=== PATIENT | female | born 1980 | race Caucasian/White ===

== ENCOUNTER 2025-04-25 08:14 | Emergency (ER) | payer MEDICAID, SELFPAY ==
[2025-04-25 08:34] VITALS: BP 156/102; PULSE 79; RESP 18; TEMP 37.1; O2SAT 99
--- NOTE | 2025-04-25 08:44 | ED_ITS ---
HPI - Extremity Injury (Upper) General Chief Complaint: Extremity Injury, Upper Stated Complaint: left shoulder pain Time Seen by Provider: 04/25/25 08:44 Source: patient Mode of arrival: ambulatory Limitations: no limitations History of Present Illness HPI narrative: 44-year-old female presents with complaint left shoulder pain. Has had pain to left shoulder for the past 2-3 months. Patient saw her primary care physician for pain and was referred to physical therapy. Patient states she did want physical therapy session and then did the exercises that she learned at physical therapy at home. Patient states that it was over in [place] and she was not able to drive that far for therapy due to her work schedule. Has been taking ibuprofen to treat her pain. Patient states about a week ago her dog pulled on left arm when on a walk. Since then has had decreased range of motion to left shoulder. Patient states that pain seems similar to when she had bursitis to her right hip. Patient requesting steroids. Also needs note, called in to work today. All systems reviewed and negative except as noted above. Related Data Allergies Allergy/AdvReac Type Severity Reaction Status Date / Time No Known Allergies Allergy Verified 04/25/25 08:40 [facility] Comments At time of signature, agree with nursing past medical, surgical, social and family history. There is no relevant family history pertinent to the presenting complaint. Exam Narrative: GENERAL: This is a well-nourished, well-developed patient, in no apparent distress. HEAD: normocephalic, atraumatic. EYES: PERRL. Sclera clear/white. Vision is grossly intact. EARS: External ears normal NOSE: External nose normal NECK: Neck supple, non-tender without lymphadenopathy, masses or thyromegaly. CARDIOVASCULAR: Regular rate and rhythm without murmurs, gallops, or rubs. RESPIRATORY: Clear to auscultation. Breath sounds equal bilaterally. No wheezes, rales, or rhonchi. SKIN: warm, Dry, intact with no suspicious lesions or rash, good texture and turgor. NEURO: awake, alert, and oriented to person, place and time. There were no obvious focal neurologic abnormalities. EXTREMITIES: Anterior pain to left shoulder. Decreased range of motion able to abduct and flex to 90 degree. Normal strength. Distal neurovascularly intact. Course Course Level of Care: Express Care Visit Vital Signs Vital signs: Reviewed MDM - Extremity Injury (Upper) MDM Narrative Medical decision making narrative: we do not have a tack today for x-rays. I explained this to patient and offered transfer to a no other facility for an x-ray. She did not feel was necessary. Will follow up with her primary care physician. Patient was prescribed prednisone, Robaxin for left shoulder pain. She is well-appearing, nontoxic. Differential Diagnosis Differential diagnosis: Likely other (shoulder pain, arthritis, strain) Discharge Plan Discharge Clinical Impression: Left shoulder strain Patient Disposition: Home Condition: Stable Instructions: Shoulder Pain (ED) Additional Instructions: take medications as prescribed. Methocarbamol as a muscle relaxant may cause drowsiness. Do not drive while taking this medication. Continue to take ibuprofen every 6-8 hours as needed for pain. Apply heat for pain. Follow-up with your primary care physician for further evaluation of your pain. Patient Language: Syriac Prescriptions: New prednisone 20 mg tablet 40 mg PO DAILY 5 Days Qty: 10 0RF methocarbamol 750 mg tablet 750 mg PO Q8H PRN (Reason: muscle pain/spasm) Qty: 30 0RF Follow-up/Referrals: UNKNOWN,DOCTOR [Primary Care Provider] Stand Alone Forms: Work/School Release IP Time of Disposition: 08:45
== END 2025-04-25 08:49 | disposition home or self-care (01) ==
PROVIDERS: Emergency Provider Nurse Practitioner Family
DX: S46.912A Strain of unspecified muscle, fascia and tendon at shoulder and upper arm level, left arm, initial encounter (principal); X58.XXXA Exposure to other specified factors, initial encounter; Y93.K1 Activity, walking an animal
CPT/HCPCS: 99203; G0463

== ENCOUNTER 2025-05-22 19:34 | Emergency (ER) | payer MEDICAID, SELFPAY ==
--- OUTSIDE RECORDS SUMMARY | 2023-09-20 04:12 | XMS_ITS | Continuity of Care Document ---
Author Organization [facility] Address [address] [place] [address] Phone Care Team Providers Care Elevating Grader Operator Name Role Phone Hand Bo MARCH Unavailable Unavailable Allergies, Adverse Reactions, Alerts Substance Reaction Status Criticality No Known Allergies Active No Inform ation Medications Medication Instructions Dosage Effective Dates (start - stop) Status Comments hydrochlorothiazide 25 mg tablet take 1 tablet by oral route every day 25 MG - Active Women's One Daily 18 mg iron-400 mcg-500 mg Ca tablet - Active CRANBERRY (unknown strength) Not Available - Active ashwagandha root extract 300 mg capsule - Active Procedures Procedure Date GENERAL HEALTH PANEL HEMOGLOBIN A1C HGA1C, GLYCO LDL-CHOLESTEROL, DIRECT ROUTINE VENIPUNCTURE Pt inelig neg scrn depres Brief Emotional/Behavioral A ssessment, With Scoring/Doct, Per Stndrd Instrument Clin depression screen doc Brief Emotional/Behavioral A ssessment, With Scoring/Doct, Per Stndrd Instrument PREVENTATIVE-NEW: 40-64 BODY MASS INDEX DOCD SYST BP LT 130 MM HG DIAST BP >= 90 MM HG Advance Directives Directive Yes / No Effective Date File Name Life Support Not Answered N/A N/A Intubation Not Answered N/A N/A Antibiotics Not Answered N/A N/A IV Fluid Support Not Answered N/A N/A Tube Feed Not Answered N/A N/A Other Directive N/A N/A WARNING:The information contained in this section is historical and is provided for information only and does not constitute a legal document or any assurance that the information is still accurate. Please verify the information with the bloom of the legal document before using it for clinical purposes. Encounters Encounter Description Practice Location Reason(s) For Visit Diagnoses Date Provider Providers Copied on Encounter [facility], [address], [place], [place], [address] , tel: [phone] [facility] No Information [address], [address], [place], [place], [address] , . tel: [phone] [facility], [address], [place], [place], [address] , tel: [phone] [facility] No Information [address], [address], [place], [place], [address] , . tel: [phone] [facility], [address], [place], [place], [address] , tel: [phone] [facility] Encounter for general adult medical examination without abnormal findingsEssential (primary) hypertensionOther abnormal glucose May- 1 [address], [address], [place], [place], [address] , . tel: [phone] Referring Provider: Bo Adams, [address], [place], [address] . tel:[phone] PREVENTATIVE -NEW: 40-64 [facility], [address], [place], [place], [address] , tel: [phone] [facility] Estab Care (chief complaint) Body mass index [BMI] 39.0-39.9, adultRoutine general medical examination at a health care facilityEssential (primary) hypertensionAbnorma l glucose Oct-2 1 [address], [address], [place], [place], [address] , . tel:[phone] Referring Provider: Bo Adams, [address], [place], [address] . tel:[phone] Family History Family Member Type Diagnosis Age At Onset No Information Immunizations Vaccine Date Status Comments Pfizer-BioNTech COVID19 Vacc ine, 0.3mL per dose, 2 doses, administered 21 days apart administered Source: Other Regist ry Pfizer-BioNTech COVID19 Vacc ine, 0.3mL per dose, 2 doses, administered 21 days apart administered Source: Other Regist ry Payers Payer name Insurance type Covered constitution party ID Cierra watts(s) [facility] ACCESS CHOICE BL [id number] Social History Type Description Quantity Date Captured Comments Alcohol Use Details Unknown Caffeine Use Details Unknown Tobacco Use Status No Information Smoking Status No Information Sex Female Chief Complaint And Reason For Visit No Information Reason For Referral Reason For Referral No Information Plan Of Treatment Date Type Action Status Goal Dietary management education , guidance, and counseling completed History Of Present Illness Encounter Date Complaint History Of Prese nt Illness Estab Care The patient is h ere for a preventative visit. Chronic problems are addressed elsewhere. Immunizations and screening tests are reviewed at this visit.PMH: HTN, Anemia, anxiety, depression, migrainesPSH: Gallbladder, herniaSoc: single, 2 children, no smoking, drink occFH: Brain / Breast in Grandparent, Asthma, Depression, Diabetes, HTN, Obesity, SeizureMeds: HCTZAllgs: nkdathe patient just moved here in october of 2019 Functional Status Date Functional Assessmen t No Information Instructions Date Instruction Additional Infor mation Dietary management e ducation, guidance, and counseling Related to Body mass index (BMI) 39.0-39.9, adult Assessments Type Assessment Date No Information Patient Care Teams Name Effective Dates (start - stop) Status Members No Information
--- NOTE | ~2025-05-22 | XR_ITS ---
EXAMINATION: XR chest 2V DATE: 05/22/2025 20:02 INDICATION: Shortness of breath and chest pain TECHNIQUE: PA and lateral views of the chest were obtained. COMPARISON: None FINDINGS: Mild eventration along the anterior right hemidiaphragm. The lungs are clear with no focal airspace opacities, pulmonary edema, pleural effusion or pneumothorax. The cardiomediastinal silhouette is normal. Cholecystectomy clips in the right upper quadrant. Visualized bones and soft tissues are unremarkable. IMPRESSION: 1. No acute cardiopulmonary disease. Reviewed, dictated and finalized at location A.
--- NOTE | 2025-05-22 19:36 | ECG_ITS ---
Test Date: 2025-05-22 19:40:25 Measurements Intervals [place] Rate: 100 P: 25 KS: 161 QRS: -16 QRSD: 94 T: 72 QT: 232 QTc: 300 Interpretive Statements SINUS TACHYCARDIA INCOMPLETE RIGHT BUNDLE BRANCH BLOCK DELAYED PRECORDIAL R/S TRANSITION VOLTAGE CRITERIA FOR LVH NONSPECIFIC T-WAVE ABNORMALITY- ANTEROLAT/INF LEADS BASELINE ARTIFACT- I, II, III, AVR, AVL, AVF, V1-V6 BORDERLINE ECG No previous ECG available for comparison Electronically Signed On 05-23-2025 06:15:49 CDT by Javier Muñoz D.O.
--- OUTSIDE RECORDS SUMMARY | 2025-05-22 19:36 | XMS_ITS | Clinical Summary ---
Author Organization [facility] Address [address] [place] [address] Care Team Providers Care Carpenters Supervisor Name Role Phone Alicia Alonzo MD Primary Care Provider Source Comments [facility],non-owned Affiliates and Associated Physician Practices is amultiple site organization consisting of ambulatory clinics and hospital sitesin [place], [place], [place] and [place]. This disclosure is being madepursuant to the Care Everywhere program and may not contain all information available regarding this patient. Last updated 18.[facility] Allergies No known active allergies Medications * Be aware that medications may not be up to date on this document. Alwaysverify current medications with the patient. losartan (Cozaar) 25 MG tablet Take 1 (one) tablet by mouth once daily 90 tablet 1 02/03/20 24 Active hydroCHLOROthia zide (Hydrodiuril) 25 MG tablet Take 1 (one) tablet by mouth once daily 90 tablet 1 02/03/20 24 Active tirzepatide (Zepbound) 2.5 MG/0.5ML injectionIndica tions:Prediabet es,Class 3 severe obesity due to excess calories with serious comorbidity and body mass index (BMI) of 40.0 to 44.9 in adult (HCC) Inject 2.5 (two and one-half) mg subcutaneously every 7 days 2 mL 2 11/24/19 25 Active meloxicam (Mobic) 15 MG tablet Take 1 (one) tablet by mouth once daily 30 tablet 2 11/24/19 25 Active Active Problems Problem Noted Date Diagnosed Date Primary hypertension 01/03/2024 Class 3 severe obesity due t o excess calories with serious comorbidity and body mass index (BMI) of 40.0 to 44.9 in adult 01/03/2024 History of gestational diabetes 01/03/2024 Encounters Date Type Department Care Team Description 02/27/2025 Patient Outreach [facility] - Care Coordination [address] [place] [address] Kathy Harper Outreach Preventive Care from Last 3 Months Family History Medical History Relation Name Comments CAD (Coronary Artery Disease) Father Brain Tumor Maternal Grandfather Cirrhosis Maternal Grandfather Heart Failure Maternal Grandmother CAD (Coronary Artery Disease) Mother Cancer - Lung Mother Diabetes - Type 2 Mother Hypertension Mother Cancer - Breast Paternal Grandmother Diabetes - Type 2 Paternal Grandmother Relation Name Status Comments Father Maternal Grandfather Maternal Grandmother Mother Alive Paternal Grandmother Social History Tobacco Use Types Packs/Day Years Used Date Smoking Tobacco: Never Smokeless Tobacco: Never Tobacco Cessation:Counseling Given: No Alcohol Use Standard Drinks/Week Comments Yes 0 (1 standard drink = 0.6 oz pur e alcohol) once a month PHQ-2 Answer Date Recorded Patient Health Questionnaire-2 Score 0 11/23/2024 Comments No Sex and Gender Information Value Date Recorded Sex Assigned at Not on file Legal Sex Female 9:28 PM CDT Gender Identity Not on file Sexual Orientation Not on file Last Filed Vital Signs Vital Sign Reading Time Taken Comments Blood Pressure 128/83 11/23/2024 7:33 AM CDT Pulse 75 11/23/2024 7:33 AM CDT Temperature 36.3 C (97.4 F) 11/23/2024 7:33 AM CDT Respiratory Rate 18 08/03/2020 6:16 PM GYPSUM BLOCK SETTER Oxygen Saturation 98% 11/23/2024 7:33 AM CDT Inhaled Oxygen Concentration - - Weight 122.2 kg (269 lb 6.4 oz) 11/23/2024 7:33 AM CDT Height 166.4 cm (5' 5.5) 11/23/2024 7:33 AM CDT Body Mass Index 44.15 11/23/2024 7:33 AM CDT Plan of Treatment Health Maintenance Due Date Last Done Comments COLOGUARD (AGES 45-75) - COL ON CA SCREENING 1979 COLON MONITORING 1979 COLONOSCOPY - COLON CA SCREENING 1979 CT COLONOGRAPHY - COLON CA SCREENING 1979 Colorectal Cancer Screening 1979 FIT - COLON CA SCREENING 1979 FLEX SIG - COLON CA SCREENING 1979 MAMMOGRAM 1979 DTAP/TDAP/TD VACCINES (1 - Tdap) 11/12/1998 HEPATITIS B VACCINE (1 of 3 - 19+ 3-dose series) 11/12/1998 PAP SMEAR 11/12/2000 HPV VACCINE (1 - 3-dose SCDM series) 11/12/2006 COVID-19 VACCINE (3 - 2024-2 6 season) 2025 02/14/2021, 01/22/2021 INFLUENZA VACCINE (#1) 2025 SCREENING FOR DIABETES 01/07/2027 , 01/08/2024, 12/27/2019 LIPID TESTING 01/07/2029 01/08/2024, 01/13/2018 ZOSTER VACCINE (1 of 2) 11/12/2029 HEPATITIS C SCREENING Completed 01/08/2024 HIV SCREENING Completed 01/08/2024 DEPRESSION SCREENING Completed 11/23/2024, 01/03/2024 HIB VACCINE Aged Out No longer eligi ble based on patient's age to complete this topic MENINGOCOCCAL (Group B) VACCINE SHARED DECISION-MAKING Aged Out No longer eligible based on patient's age to complete this topic MENINGOCOCCAL GROUPS A/C/Y/W VACCINE Aged Out No longer eligible b ased on patient's age to complete this topic PNEUMOCOCCAL VACCINE Aged Out No long er eligible based on patient's age to complete this topic Procedures Procedure Name Priority Date/Time Associated Diagnosis Comments LIPID PROFILE Routine 01/08/2024 8:56 AM CDT Healthcare maintenance Primary hypertension HEPATITIS C ANTIBODY W RFLX PCR Routine 01/08/2024 8:56 AM CDT Healthcare maintenance HIV-1 HIV-2 ANTIBODY + HIV P24 AG PANEL Routine 01/08/2024 8:56 AM CDT Healthcare maintenance HEMOGLOBIN A1C Routine 01/08/2024 8:55 AM CDT Healthcare maintenance Class 3 severe obesity due to excess calories with serious comorbidity and body mass index (BMI) of 40.0 to 44.9 in adult History of gestational diabetes from Last 3 Months or Most Recently Relevant to Health Maintenance Results * HEPATITIS C ANTIBODY W RFLX PCR (01/08/2024 8:56 AM CDT) Hepatitis C Antibody Non Reactive Non Reactive [facility] INSURANCE BILL Comment:FASTING Blood BLOOD SPECIMEN / Unknown 01/08/2024 8:56 AM CDT 01/08/2024 Narrative Resulting Agency Comment Lab Testing performed at: [facility] [id number] us Alicia Alonzo MD LAB - CHEMISTRY ORDERAB LES Final Result Performing Organization Address City/[facility]/ZIP Co de Phone Number [facility] INSURANCE BILL [address] [place] [address] * HIV-1 HIV-2 ANTIBODY + HIV P24 AG PANEL (01/08/2024 8:56 AM CDT) [facility] HIV Screen 4th Generation w Reflex Non Reactive Non Reactive [facility] INSURANCE BILL Comment: HIV Negative HIV-1/HIV-2 antibodies and HIV-1 p24 antigen were NOT detected. There is no laboratory evidence of HIV infection. FASTING Blood BLOOD SPECIMEN / Unknown 01/08/2024 8:56 AM CDT 01/08/2024 Narrative Resulting Agency Comment Lab Testing performed at: [facility] [id number] us Alicia Alonzo MD LAB - CHEMISTRY ORDERAB LES Final Result Performing Organization Address City/[facility]/ZIP Co de Phone Number [facility] INSURANCE BILL [address] [place] [address] * (ABNORMAL) LIPID PROFILE (01/08/2024 8:56 AM CDT) [facility] Cholesterol 193 100 - 199 mg/dL [facility] INSURANCE BILL Triglycerides 247(H) 0 - 149 mg/dL [facility] INSURANCE BILL HDL Cholesterol 40 >39 mg/dL [facility] INSURANCE BILL VLDL Calculated 43(H) 5 - 40 mg/dL [facility] INSURANCE BILL LDL Calculated 110(H) 0 - 99 mg/dL [facility] INSURANCE BILL Comment NOT AVAILABLE [facility] INSURANCE BILL Comment: FASTING Result cannot be obtained for this observation. Blood BLOOD SPECIMEN / Unknown 01/08/2024 8:56 AM CDT 01/08/2024 Narrative Resulting Agency Comment Lab Testing performed at: [facility] [id number] Alicia Alonzo MD LAB - CHEMISTRY ORDERAB LES Final Result [facility] INSURANCE BILL [address] [place] [address] * (ABNORMAL) HEMOGLOBIN A1C (01/08/2024 8:55 AM CDT) Hemoglobin A1c 6.0(H) 4.8 - 5.6 % [facility] INSURANCE BILL Comment: . Prediabetes: 5.7 - 6.4 Diabetes: >6.4 Glycemic control for adults with diabetes: <7.0 FASTING Blood BLOOD SPECIMEN WITH EDTA / Unknown 01/08/2024 8:55 AM CDT 01/08/2024 Narrative Resulting Agency Comment Lab Testing performed at: [address] [id number] Alicia Alonzo MD LAB - CHEMISTRY ORDERAB LES Final Result [facility] INSURANCE BILL [address] [place] [address] from Last 3 Months or Most Recently Relevant to Health Maintenance Insurance [employer] Care Teams Carpenters Supervisor Relationship Specialty Start Date End Date Alicia Alonzo MD [address] [place] [address] PCP - General Internal Medicine 01/03/24
--- OUTSIDE RECORDS SUMMARY | 2025-05-22 19:36 | XMS_ITS | Encounter Summary ---
Author Organization [facility] Address [address] [place] [address] Care Team Providers Care Medical Service Technician Name Role Phone Alicia Alonzo MD Primary Care Provider Kathy Harper Unavailable [phone] Encounter Details Date Type Department Care Team (Late st Contact Info) Description 08/04/2020 Telephone [facility] [address] [place] [id number] Jose Alfredo Horne, [place] Social History Tobacco Use Types Packs/Day Years Used Date Smoking Tobacco: Never Smokeless Tobacco: Never Alcohol Use Standard Drinks/Week Comments Yes 0 (1 standard drink = 0.6 oz pur e alcohol) Comments Unknown Sex and Gender Information Value Date Recorded Sex Assigned at Not on file Legal Sex Female 9:28 PM CDT Gender Identity Not on file Sexual Orientation Not on file documented as of this encounter Plan of Treatment Not on file documented as of this encounter Visit Diagnoses Not on filedocumented in this encounter Additional Health Concerns Infection Onset Date Last Indicated Resolved Time COVID-19 Under Investigation 08/03/2020 08/03/2020 08/04/2020 3:23 PM ASSOCIATE CHEMIST COVID-19 Confirmed 08/03/2020 08/03/2020 0 4:34 AM ASSOCIATE CHEMIST documented as of this encounter Care Teams Medical Service Technician Relationship Specialty Start Date End Date Alicia Alonzo MD [address] [place] [address] PCP - General Internal Medicine 01/03/24 Kathy Harper Care Coordination Specialist Care Management 02/27/25 04/13/25 documented as of this encounter
[2025-05-22 19:43] VITALS: BP 137/84; PULSE 101; RESP 20; TEMP 36.1; O2SAT 97
[2025-05-22 19:55] LABS: Hematocrit 41.2 % (37.0-47.0); Hemoglobin 13.7 g/dL (12.0-15.0); Immature Granulocyte Percent A 0.4 % (0-0.5); Lymphocytes Absolute Auto 2.60 K/mm3 (0.9-3.2); Mean Corpuscular HGB Conc 33.3 g/dl (32-36); Mean Corpuscular Hemoglobin 28.8 pg (26-34); Mean Corpuscular Volume 86.7 fl (80-100); Nucleated Red Blood Cells Absolute Auto 0.000 K/mm3 (0.0-0.012); Nucleated Red Blood Cells Perc 0.0 % (0.0-0.2); Platelet Count Result 291 k/mm3 (150-375); Red Blood Count 4.75 M/mm3 (4.2-5.4); White Blood Count 9.9 K/mm3 (4.5-10.0)
[2025-05-22 20:10] LABS: INR 1.0; Prothrombin Time 13.8 Seconds (11.1-14.7)
[2025-05-22 20:11] LABS: Partial Thromboplastin Time 27.1 Seconds (22.3-36.8)
[2025-05-22 20:19] LABS: Alanine Aminotransferase 20 U/L (6-35); Albumin Level 4.5 g/dL (3.5-5.1); Alkaline Phosphatase 86 U/L (38-126); Anion Gap 15 mmol/L (4-12); Aspartate Amino Transferase 27 U/L (14-36); Bilirubin,Total 0.5 mg/dL (0.2-1.3); Blood Urea Nitrogen 15 mg/dL (7-17); Calcium 9.2 mg/dL (8.4-10.2); Carbon Dioxide 18 mmol/L (22-30); Chloride 98 mmol/L (98-107); Estimated CRCL calculation 134 ml/min; Estimated Glomerular Filt Rate > 60; Glucose 264 mg/dL (65-110); Lipase 127 U/L (23-300); Potassium 2.8 mmol/L (3.4-5.0); Sodium 131 mmol/L (137-145); Total Protein 8.1 g/dL (6.3-8.2)
[2025-05-22 20:24] LABS: Troponin I < 0.012 ng/mL (0.000-0.034)
--- NOTE | 2025-05-22 20:35 | ED.CHESTPAIN ---
HPI - Chest Pain General Chief Complaint: Chest Pain Stated Complaint: chest pain/ SOB week Time Seen by Provider: 05/22/25 20:06 Source: patient Mode of arrival: ambulatory Limitations: no limitations History of Present Illness HPI narrative: This is a 44 year old female that presents to the ER for chest pain. Ongoing over the last week. Reports some associated shortness of breath. The pain was initially burning, now dull. Denies fever, cough, vomiting, diarrhea. Related Data Allergies Allergy/AdvReac Type Severity Reaction Status Date / Time No Known Allergies Allergy Verified 04/25/25 08:40 Review of Systems Review of Systems: All systems reviewed & are unremarkable except as noted in HPI and below PMFSH Past Medical History Medical History (Updated 05/23/25 @ 01:14 by Argentina Presley PA-C) History of hypertension Social History Social History (Updated 05/22/25 @ 20:38 by Argentina Presley PA-C) Smoking status: Current every day smoker Tobacco type: e-cigarettes/vaping Exam Narrative: GENERAL: Well-appearing, well-nourished, and in no acute distress. HEAD: Normocephalic, atraumatic. EYES: EOMI. NECK: Supple. No adenopathy or masses. No JVD CHEST: Clear to auscultation. No respiratory distress. No wheezes rales or rhonchi HEART: Regular rate and rhythm. No murmur heard. Normal peripheral pulses. EXTREMITIES: Normal range of motion. No edema. SKIN: Warm, dry, no rash. NEURO: No focal deficits. Alert and oriented x3. PSYCH: Normal mood and affect Course Vital Signs Vital signs: Vital Signs Temperature 96.9 F L 05/22/25 19:43 Pulse Rate 101 H 05/22/25 19:43 Respiratory Rate 20 05/22/25 19:43 Blood Pressure 137/84 05/22/25 19:43 Pulse Oximetry 97 05/22/25 19:43 Oxygen Delivery Room Air 05/22/25 19:43 Temperature 96.9 F L 05/22/25 19:43 Pulse Rate 85 05/22/25 23:30 Respiratory Rate 16 05/22/25 23:30 Blood Pressure 159/80 H 05/22/25 23:30 Pulse Oximetry 99 05/22/25 23:30 Oxygen Delivery Room Air 05/22/25 21:06 MDM - Chest Pain MDM Narrative Medical decision making narrative: Patient presents to the emergency department for chest pain. Ongoing over the last week. Tachycardic upon arrival, this normalized IV fluids. Cbc without concerning findings. Metabolic panel with evidence of dehydration. Also shows hypokalemia. Blood glucose is elevated. Hemoglobin A1c would make her at increased risk of diabetes. Chest x-ray without acute cardiopulmonary abnormality. EKG without acute ST changes, baseline and 3 hour troponin are negative. D-dimer is not elevated. Patient was hydrated, potassium replaced. Repeat metabolic panel with improvement. Potassium was normalized. Patient updated on her workup and agrees with plan of care. Instructed follow-up with her primary provider for further evaluation. She was given warnings to return to the ER Differential Diagnosis Differential diagnosis: Likely stable angina, atypical chest pain, costochondritis, chest pain and other (PE, pneumonia, GERD, esophagitis) Lab Data Attestation: I reviewed the patient's lab results. 05/22/25 19:49 05/23/25 00:52 Labs: Lab Results 05/22/25 05/22/25 05/22/25 Range/Units 19:48 19:49 22:37 WBC 9.9 (4.5-10.0) K/mm3 RBC 4.75 (4.2-5.4) M/mm3 Hgb 13.7 (12.0-15.0) g/dL Hct 41.2 (37.0-47.0) % MCV 86.7 (80-100) fl MCH 28.8 (26-34) pg MCHC 33.3 (32-36) g/dl RDW 13.6 (11.5-14.5) % Plt Count 291 (150-375) k/mm3 MPV 11.1 H (7.4-10.4) fl Immature Gran % (Auto) 0.4 (0-0.5) % Neut % (Auto) 62.3 (45.5-73.1) % Lymph % (Auto) 26.4 (18.3-44.2) % Christian % (Auto) 9.2 H (2.6-8.5) % Eos % (Auto) 1.1 (0-4.4) % Baso % (Auto) 0.6 (0.2-1.2) % Lymph # (Auto) 2.60 (0.9-3.2) K/mm3 Christian # (Auto) 0.9 H (0.1-0.6) K/mm3 Eos # (Auto) 0.1 (0-0.3) K/mm3 Baso # (Auto) 0.1 (0.0-0.1) K/mm3 Abs Immat Gran (auto) 0.04 H (0.00-0.031) K/mm3 Absolute Neuts (auto) 6.1 (1.3-6.7) K/mm3 Absolute Nucleated RBC 0.000 (0.0-0.012) K/mm3 Nucleated RBC % 0.0 (0.0-0.2) % PT 13.8 (11.1-14.7) Seconds INR 1.0 APTT 27.1 (22.3-36.8) Seconds D-Dimer 0.31 (<0.48) ug/mL Sodium 131 L (137-145) mmol/L Potassium 2.8 L* (3.4-5.0) mmol/L Chloride 98 (98-107) mmol/L Carbon Dioxide 18 L (22-30) mmol/L Anion Gap 15 H (4-12) mmol/L BUN 15 (7-17) mg/dL Creatinine 0.60 L (0.7-1.0) mg/dL Estim Creat Clear Calc 134 ml/min Estimated GFR > 60 (59 - ) Glucose 264 H (65-110) mg/dL Hemoglobin A1c 6.2 H (<5.7) % Calcium 9.2 (8.4-10.2) mg/dL Magnesium 1.8 (1.6-2.3) mg/dL Total Bilirubin 0.5 (0.2-1.3) mg/dL AST 27 (14-36) U/L ALT 20 (6-35) U/L Alkaline Phosphatase 86 (38-126) U/L Troponin I < 0.012 < 0.012 (0.000-0.034) ng/mL NT-Pro-B Natriuret Pep < 20 (19.9-100) pg/mL Total Protein 8.1 (6.3-8.2) g/dL Albumin 4.5 (3.5-5.1) g/dL Lipase 127 (23-300) U/L 05/23/25 Range/Units 00:52 WBC (4.5-10.0) K/mm3 RBC (4.2-5.4) M/mm3 Hgb (12.0-15.0) g/dL Hct (37.0-47.0) % MCV (80-100) fl MCH (26-34) pg MCHC (32-36) g/dl RDW (11.5-14.5) % Plt Count (150-375) k/mm3 MPV (7.4-10.4) fl Immature Gran % (Auto) (0-0.5) % Neut % (Auto) (45.5-73.1) % Lymph % (Auto) (18.3-44.2) % Christian % (Auto) (2.6-8.5) % Eos % (Auto) (0-4.4) % Baso % (Auto) (0.2-1.2) % Lymph # (Auto) (0.9-3.2) K/mm3 Christian # (Auto) (0.1-0.6) K/mm3 Eos # (Auto) (0-0.3) K/mm3 Baso # (Auto) (0.0-0.1) K/mm3 Abs Immat Gran (auto) (0.00-0.031) K/mm3 Absolute Neuts (auto) (1.3-6.7) K/mm3 Absolute Nucleated RBC (0.0-0.012) K/mm3 Nucleated RBC % (0.0-0.2) % PT (11.1-14.7) Seconds INR APTT (22.3-36.8) Seconds D-Dimer (<0.48) ug/mL Sodium 135 L (137-145) mmol/L Potassium 4.2 (3.4-5.0) mmol/L Chloride 101 (98-107) mmol/L Carbon Dioxide 23 (22-30) mmol/L Anion Gap 11 (4-12) mmol/L BUN 13 (7-17) mg/dL Creatinine 0.54 L (0.7-1.0) mg/dL Estim Creat Clear Calc 148 ml/min Estimated GFR > 60 (59 - ) Glucose 106 (65-110) mg/dL Hemoglobin A1c (<5.7) % Calcium 8.9 (8.4-10.2) mg/dL Magnesium (1.6-2.3) mg/dL Total Bilirubin (0.2-1.3) mg/dL AST (14-36) U/L ALT (6-35) U/L Alkaline Phosphatase (38-126) U/L Troponin I (0.000-0.034) ng/mL NT-Pro-B Natriuret Pep (19.9-100) pg/mL Total Protein (6.3-8.2) g/dL Albumin (3.5-5.1) g/dL Lipase (23-300) U/L Imaging Data Radiologist's impression: ITS Impressions Chest X-Ray 05/22/25 20:05 IMPRESSION: 1. No acute cardiopulmonary disease. ECG Data EKG #1: ECG completion date: 05/22/25 EKG Interpretation: normal rate, sinus rhythm, no ST changes and normal QT Critical Care Time Critical Care Time Critical Care Time: No Discharge Plan Discharge Clinical Impression: Dehydration, Hypokalemia, Pre-diabetes Chest pain Qualifiers: Chest pain type: unspecified Qualified Code(s): R07.9 - Chest pain, unspecified Patient Disposition: Home Condition: Stable Instructions: Chest Pain (ED), Dehydration (ED), Hypokalemia (ED) Additional Instructions: Return to the emergency department if you experience fever, worsening chest pain, shortness of breath, abdominal pain with nausea and vomiting, weakness, numbness, or any other symptoms that are concerning to you. Take pantoprazole as prescribed Follow up with primary care doctor Patient Language: Greenlandic Prescriptions: New pantoprazole 40 mg tablet,delayed release (DR/EC) 40 mg PO HS 28 Days Qty: 28 0RF No Action prednisone 20 mg tablet 40 mg PO DAILY 5 Days Qty: 10 0RF methocarbamol 750 mg tablet 750 mg PO Q8H PRN (Reason: muscle pain/spasm) Qty: 30 0RF Follow-up/Referrals: Jacoby Arnold MD [Physician, Family Practice] UNKNOWN,DOCTOR [Non-Staff] Quality HEART score for chest pain patients History: slightly suspicious ECG: normal Age: < or = to 45 years Risk factors: > or = to 3 risk factors of atherosclerotic disease Troponin: < or = to 1x normal limit Heart score: 2
[2025-05-22 20:38] LABS: Magnesium 1.8 mg/dL (1.6-2.3)
--- OUTSIDE RECORDS SUMMARY | 2025-05-22 20:42 | XMS_ITS | Clinical Summary ---
Author Organization [facility] [employer] Address [address] [place] [place] [address] Care Team Providers Care Whistle Punk Name Role Phone Alicia Alonzo MD Primary Care Provider Source Comments [facility] [employer],non-owned Affiliates and Associated Physician Practices is amultiple site organization consisting of ambulatory clinics and hospital sitesin [place], [place], [place] and [place]. This disclosure is being madepursuant to the Care Everywhere program and may not contain all information available regarding this patient. Last updated 18.[facility] [employer] Allergies No known active allergies Medications * [...] Department Care Team Description 02/27/2025 Patient Outreach [facility] - Care Coordination [address] [place] [address] Kathy Harper Outreach Preventive Care [...] CDT Respiratory Rate 18 08/03/2020 6:16 PM [employer] Oxygen Saturation 98% 11/23/2024 7:33 AM CDT [...] Resulting Agency Comment Lab Testing performed at: [employer] [place] [employer] [facility] [id number] us Alicia Alonzo MD LAB - CHEMISTRY ORDERAB LES Final Result Performing Organization Address City/[facility]/ZIP Co de Phone Number [facility] INSURANCE BILL [address] [place] [address] * HIV-1 HIV-2 ANTIBODY + HIV P24 AG PANEL (01/08/2024 8:56 AM CDT) [facility] HIV Screen 4th Generation w Reflex Non Reactive Non Reactive [facility] INSURANCE BILL Comment: HIV Negative HIV-1/HIV-2 antibodies and HIV-1 p24 antigen were NOT detected. There is no laboratory evidence of HIV infection. FASTING Blood BLOOD SPECIMEN / Unknown 01/08/2024 8:56 AM CDT 01/08/2024 Narrative Resulting Agency Comment Lab Testing performed at: [employer] [facility] [id number] us Alicia Alonzo MD LAB - CHEMISTRY ORDERAB LES Final Result Performing Organization Address City/[facility]/ZIP Co de Phone Number [facility] INSURANCE BILL [address] [place] [address] * (ABNORMAL) LIPID PROFILE (01/08/2024 8:56 AM CDT) [facility] Cholesterol 193 100 - 199 mg/dL [...] Resulting Agency Comment Lab Testing performed at: [employer] [id number] Alicia Alonzo MD LAB - CHEMISTRY ORDERAB LES Final Result [facility] INSURANCE BILL [address] [place] [address] * (ABNORMAL) HEMOGLOBIN A1C (01/08/2024 8:55 AM CDT) Hemoglobin A1c 6.0(H) 4.8 - 5.6 % [facility] INSURANCE BILL Comment: . Prediabetes: 5.7 - 6.4 Diabetes: >6.4 Glycemic control for adults with diabetes: <7.0 FASTING Blood BLOOD SPECIMEN WITH EDTA / Unknown 01/08/2024 8:55 AM CDT 01/08/2024 Narrative Resulting Agency Comment Lab Testing performed at: [address] [id number] Alicia Alonzo MD LAB - CHEMISTRY ORDERAB LES Final Result [facility] INSURANCE BILL [address] [place] [address] from Last 3 Months or Most Recently Relevant to Health Maintenance Insurance [employer] Care Teams Whistle Punk Relationship Specialty Start Date End Date Alicia Alonzo MD [address] [place] [address] PCP - General Internal Medicine 01/03/24
--- OUTSIDE RECORDS SUMMARY | 2025-05-22 20:42 | XMS_ITS | Encounter Summary ---
Author Organization [facility] Address [address] [place] [address] Care Team Providers Care Pediatric Physician Name Role Phone Alicia Alonzo MD Primary Care Provider Kathy Harepr Unavailable [phone] Encounter Details Date Type Department Care Team (Late st Contact Info) Description 08/04/2020 Telephone [facility] EM[facility] [address] [place] [id number] Jose Alfredo Horne, [place] Social History Tobacco [...] Under Investigation 08/03/2020 08/03/2020 08/04/2020 3:23 PM [employer]INAL JUSTICE IN[employer]CTOR COVID-19 Confirmed 08/03/2020 08/03/2020 0 4:34 AM CRIMINAL JUSTICE INSTRUCTOR documented as of this encounter Care Teams Pediatric Physician Relationship Specialty Start Date End Date Alicia Alonzo MD [address] [place] [id number] PCP - General Internal Medicine 01/03/24 Kathy Harper Care Coordination Specialist Care Management 02/27/25 04/13/25 documented as of this encounter
[2025-05-22 20:44] LABS: NT Pro B Type Natriuretic Pept < 20 pg/mL (19.9-100)
[2025-05-22 20:49] LABS: Hemoglobin A1C 6.2 % (<5.7)
[2025-05-22 21:16] VITALS: BP 131/90; PULSE 101; RESP 16; O2SAT 98
[2025-05-22] MEDS: ASPIRIN 81 MG CHEWABLE TABLET 324 MG PO (21:17)
[2025-05-22] MEDS: LACTATED RINGERS 1,000 ML 999 ML IV CONT (21:19)
[2025-05-22] MEDS: POTASSIUM CHLORIDE 20 MEQ ER TABLET 40 MEQ PO (21:19)
[2025-05-22] MEDS: FAMOTIDINE 20 MG/2 ML VIAL IV PUSH (21:20)
--- NOTE | 2025-05-22 21:23 | PC.NURSE ---
Denies any nausea. zofran not administered.
[2025-05-22] MEDS: POTASSIUM CHLORIDE INJ 40 MEQ in SODIUM CHLORIDE 0.9% IV 500 ML 130 MEQ IVPB (21:43)
--- NOTE | 2025-05-22 22:30 | ECG_ITS ---
Test Date: 2025-05-22 22:40:23 Measurements Intervals [place] Rate: 81 P: 38 MA: 180 QRS: -15 QRSD: 94 T: 16 QT: 377 QTc: 440 Interpretive Statements SINUS RHYTHM INCOMPLETE RIGHT BUNDLE BRANCH BLOCK VOLTAGE CRITERIA FOR LVH BASELINE ARTIFACT- I, II, III, AVR, AVL, AVF, V2 BORDERLINE ECG Compared to ECG 05/22/2025 19:40:25 HEART RATE HAS DECREASED Electronically Signed On 05-23-2025 06:14:40 CDT by Javier Muñoz D.O.
[2025-05-22 23:03] LABS: Troponin I < 0.012 ng/mL (0.000-0.034)
--- NOTE | 2025-05-22 23:21 | PC.NURSE ---
This RN assumed care/report of pt from Alexandria MCGREGOR.
[2025-05-22 23:30] VITALS: BP 159/80; PULSE 85; RESP 16; O2SAT 99
[2025-05-23 01:07] LABS: Anion Gap 11 mmol/L (4-12); Blood Urea Nitrogen 13 mg/dL (7-17); Calcium 8.9 mg/dL (8.4-10.2); Carbon Dioxide 23 mmol/L (22-30); Chloride 101 mmol/L (98-107); Estimated CRCL calculation 148 ml/min; Estimated Glomerular Filt Rate > 60; Glucose 106 mg/dL (65-110); Potassium 4.2 mmol/L (3.4-5.0); Sodium 135 mmol/L (137-145)
[2025-05-23 01:57] VITALS: BP 143/83; PULSE 88; RESP 17; O2SAT 98
== END 2025-05-23 01:59 | disposition home or self-care (01) ==
PROVIDERS: Emergency Medicine; Emergency Provider Physician Assistant
DX: R07.9 Chest pain, unspecified (principal); E86.0 Dehydration; E87.6 Hypokalemia; R73.03 Prediabetes; F17.290 Nicotine dependence, other tobacco product, uncomplicated; I45.10 Unspecified right bundle-branch block; R00.0 Tachycardia, unspecified
CPT/HCPCS: 36415; 71046; 80048; 80053; 83036; 83690; 83735; 83880; 84484; 85025; 85380; 85610; 85730; 93005; 96365; 96366; 96375; 99284; A9270; J3480; J7040; J7120